=== PATIENT | male | born 1980 | race Caucasian/White ===

== ENCOUNTER 2019-11-01 21:58 | Emergency (ER) | payer MEDICAID ==
[2019-11-01] MEDS ORDERED: NS 1,000 ML IV ONE (22:15)
[2019-11-01 22:26] LABS: HEMATOCRIT 46.7 % (42.0-52.0); HEMOGLOBIN 15.6 g/dl (13.5-17.5); MEAN CORPUSCULAR HEMOGLOBIN 29.2 pg (27.0-33.0); MEAN CORPUSCULAR HGB CONC 33.4 g/dl (32.0-36.5); MEAN CORPUSCULAR VOLUME 87.3 fl (80.0-96.0); PLATELET COUNT, AUTOMATED 237 10^3/uL (150-450); RED BLOOD COUNT 5.35 10^6/uL (4.30-6.10); WHITE BLOOD COUNT 5.5 10^3/uL (4.0-10.0)
[2019-11-01] MEDS ORDERED: NALOXONE INJ 2 MG/2 ML SYRINGE (J2310) IV STA (22:50)
[2019-11-01 23:08] LABS: ACETAMINOPHEN LEVEL < 2.0 UG/ML (10.0-30.0); ALT/SGPT 70 U/L (12-78); BILIRUBIN,DIRECT 0.2 MG/DL (0.0-0.2); BILIRUBIN,TOTAL 0.5 MG/DL (0.2-1.0); BLOOD UREA NITROGEN 11 MG/DL (7-18); CALCIUM LEVEL 8.5 MG/DL (8.5-10.1); CARBON DIOXIDE LEVEL 28 MEQ/L (21-32); CHLORIDE LEVEL 102 MEQ/L (98-107); CPK CREATINE PHOSPHOKINASE 536 U/L (39-308); CREATININE FOR GFR 1.01 MG/DL (0.70-1.30); ETHYL ALCOHOL (ETHANOL) < 0.003 % (0.000-0.010); GLOMERULAR FILTRATION RATE > 60.0 (>60); GLUCOSE, FASTING 159 MG/DL (70-100); MB/CK RELATIVE INDEX 0.37 (< OR =4); POTASSIUM SERUM 3.5 MEQ/L (3.5-5.1); SALICYLATE LEVEL 1.8 MG/DL (5.0-30.0); SODIUM LEVEL 139 MEQ/L (136-145); TOTAL PROTEIN 8.2 GM/DL (6.4-8.2); TROPONIN I < 0.02 NG/ML (< 0.10)
[2019-11-01 23:30] VITALS: BP 108/70
[2019-11-02] MEDS ORDERED: NALOXONE INJ 2 MG/2 ML SYRINGE (J2310) As Ordered ONE (03:35)
--- NOTE | 2019-11-02 08:03 | REP ---
clinical: Overdose and altered mental status . Comparison: None . Findings: The mediastinum and cardiac silhouette are stable and within normal limits for portable technique. The lung mcdonough are clear without acute consolidation, effusion, or pneumothorax. Skeletal structures are intact. Impression: No acute cardiopulmonary process appreciated. Electronically Signed by Chico Alegre MD 11/02/2019 07:55 A
--- NOTE | 2019-11-02 20:05 | ECGEPIP ---
[facility] - ED Test Date: 2019-11-01 Pat Name: IVAN SIERRA Department: Room: - Gender: Male [employer]: SB : 1980 Requested By: JEREMIE MCLAUGHLIN Order Number: [id number] Reading MD: Sunshine Estes Measurements Intervals [place] Rate: 80 P: 72 AR: 179 QRS: 68 QRSD: 110 T: 45 QT: 389 QTc: 449 Interpretive Statements SINUS RHYTHM NO PRIOR Electronically Signed on 11-02-2019 20:05:22 EST by Sunshine Estes
== END 2019-11-01 23:47 | disposition left against medical advice (07) ==
LOC: M ED 21:58 → EDBD 21:58 → M ED 23:47
DX: R09.02 Hypoxemia (principal); T40.1X1A Poisoning by heroin, accidental (unintentional), initial encounter; X58.XXXA Exposure to other specified factors, initial encounter; Y92.89 Other specified places as the place of occurrence of the external cause; F17.210 Nicotine dependence, cigarettes, uncomplicated
CPT/HCPCS: 71045; 80048; 80076; 82550; 82553; 84443; 85027; 93005; 96361; 96374; 99284; G0480; J2310

== ENCOUNTER 2019-12-16 03:03 | Emergency (ER) | payer MEDICAID, SELFPAY ==
[~2019-12-16] VITALS: Ht 188 cm; Wt 91.8 kg
[2019-12-16] MEDS ORDERED: cefTRIAXone SOD 2 GM in D5W MINI-BAG PLUS 50 ML IV ONE (05:15)
[2019-12-16 05:17] LABS: BASO % 0.2 % (0.0-1.0); EOS % 0.1 % (0.0-3.0); HEMATOCRIT 45.6 % (42.0-52.0); HEMOGLOBIN 15.2 g/dl (13.5-17.5); LYMPH # 3.5 10^3/uL (1.5-5.0); LYMPH % 18.7 % (24.0-44.0); MEAN CORPUSCULAR HEMOGLOBIN 28.7 pg (27.0-33.0); MEAN CORPUSCULAR HGB CONC 33.3 g/dl (32.0-36.5); MONO # 1.3 10^3/uL (0.0-0.8); MONO % 6.9 % (0.0-5.0); NEUTROPHILS # 13.9 10^3/uL (1.5-8.5); NEUTROPHILS % 73.6 % (36.0-66.0); PLATELET COUNT, AUTOMATED 259 10^3/uL (150-450); WHITE BLOOD COUNT 18.8 10^3/uL (4.0-10.0)
[2019-12-16 05:39] LABS: BLOOD UREA NITROGEN 11 MG/DL (7-18); CALCIUM LEVEL 8.7 MG/DL (8.5-10.1); CARBON DIOXIDE LEVEL 24 MEQ/L (21-32); CHLORIDE LEVEL 99 MEQ/L (98-107); CREATININE FOR GFR 1.06 MG/DL (0.70-1.30); GLOMERULAR FILTRATION RATE > 60.0 (>60); GLUCOSE, FASTING 94 MG/DL (70-100); POTASSIUM SERUM 5.5 MEQ/L (3.5-5.1); SODIUM LEVEL 130 MEQ/L (136-145)
[2019-12-16 06:41] VITALS: BP 149/73
== END 2019-12-16 07:08 | disposition home or self-care (01) ==
LOC: M ED 03:03
DX: L03.125 Acute lymphangitis of right lower limb (principal); L03.126 Acute lymphangitis of left lower limb; F11.20 Opioid dependence, uncomplicated; Z91.030 Bee allergy status
CPT/HCPCS: 36415; 80048; 85025; 86140; 87040; 96365; 99284; J0696

== ENCOUNTER 2020-12-19 14:50 | Emergency (ER) | payer MEDICAID, OTHER, SELFPAY ==
[~2020-12-19] VITALS: Ht 188 cm; Wt 95.5 kg
[2020-12-19] MEDS ORDERED: IBUP-1022 PO (16:51)
[2020-12-19 16:56] VITALS: BP 136/100
--- NOTE | 2020-12-20 08:14 | REP ---
INDICATION: trauma. COMPARISON: None. TECHNIQUE: Four views FINDINGS: Distal radius and ulna were grossly intact. The carpal bones and their joint spaces are preserved and without fracture or focal articular abnormality. There may be a small bone cyst in the triquetrum. Metacarpals intact. CMC joints unremarkable. MCP joints without acute finding. The phalanges and IP joints are intact. There is prominent soft tissue swelling over the dorsal aspect of the hand and wrist. IMPRESSION: 1. Prominent soft tissue swelling dorsal aspect hand and wrist without subjacent fracture or focal bone lesion. No acute bony abnormality or radiopaque foreign body. <Electronically signed by Saúl Robbins > 12/20/20 [id number]
== END 2020-12-19 16:58 | disposition home or self-care (01) ==
LOC: M ED 14:50
DX: S60.221A Contusion of right hand, initial encounter (principal); W22.8XXA Striking against or struck by other objects, initial encounter; F17.200 Nicotine dependence, unspecified, uncomplicated; Z91.030 Bee allergy status; Y92.009 Unspecified place in unspecified non-institutional (private) residence as the place of occurrence of the external cause; Y93.89 Activity, other specified; Y99.9 Unspecified external cause status